=== PATIENT | female | born 1995 | race American Indian/Alaskan Native ===

== ENCOUNTER 2017-03-13 19:27 | Emergency (ER) | payer SELFPAY ==
--- NOTE | 2017-03-13 22:27 | XRay Report ---
FINAL REPORT EXAM: XR CHEST ROUTINE 2V HISTORY: wheezing/cough/ pneumonia TECHNIQUE: 2 views of the chest. PRIORS: None. FINDINGS: The cardiomediastinal silhouette appears normal. The lungs are clear. The bones and soft tissues are unremarkable. IMPRESSION: No evidence of acute cardiopulmonary disease
[2017-03-13] MEDS ORDERED: PHENERGAN/CODEINE 6.25-10 MG/5ML PO ONE (23:01)
--- NOTE | 2017-03-13 23:55 | Emergency Department Report ---
HPI - General Chief Complaint: Upper Respiratory Infection Time Seen by Provider: 03/13/17 21:11 - HPI HPI: 22-year-old female presents today complaining of persistent cough 1.5 weeks. Patient states that recently it has been productive with green sputum. Denies any preceding cold symptoms. Positive for nasal congestion. Positive for history of asthma and states that she is allergic to pollen. Denies any history of smoking. Denies fever, chills, nausea, vomiting, chest pain, shortness of breath, abdominal pain. Denies sick contacts. ED Past Medical Hx - Past Medical History Previous Medical History?: Yes Hx Asthma: Yes - Surgical History Past Surgical History?: No - Social History Smoking Status: Never Smoker - Medications Home Medications: Home Medications Medication Instructions Recorded Confirmed Last Taken Type Omeprazole [PriLOSEC] 20 mg PO QDAY #30 capsule. 07/15/14 Unknown Rx Cetirizine HCl [ZyrTEC] 10 mg PO QDAY #30 capsule 03/14/17 Unknown Rx Fluticasone [Flonase] 1 spray NS QDAY #1 bottle 03/14/17 Unknown Rx Promethazine /Codeine 5 ml PO Q6H PRN #1 bottle 03/14/17 Unknown Rx [Phenergan/Codeine 6.25-10 mg/5 ml] ED Review of Systems ROS: Stated complaint: SOB/COUGH/CHEST PAIN Other details as noted in HPI Constitutional: denies: chills, fever, malaise Eyes: denies: eye pain ENT: congestion. denies: ear pain, throat pain Respiratory: cough. denies: shortness of breath, wheezing Cardiovascular: denies: chest pain, palpitations Endocrine: no symptoms reported Gastrointestinal: denies: abdominal pain, nausea, vomiting Neurological: denies: headache, weakness Physical Exam - Physical Exam Vital Signs: Vital Signs 03/13/17 19:52 Temperature 98.2 F Pulse Rate 114 H Respiratory 20 Rate Blood Pressure 115/76 O2 Sat by Pulse 100 Oximetry Physical Exam: GENERAL: The patient is well-developed and well-nourished. Patient is in NAD. HEAD: Normocephalic. Atraumatic. EYES: PERRL. EARS: External auditory canals and tympanic membranes clear; hearing grossly intact. NOSE: Normal nasal mucosa. Positive for nasal drainage. THROAT: No erythema, swelling or exudates. NECK: Supple, nontender, without lymphadenopathy. No meningitic signs are noted. CHEST/LUNGS: Clear to auscultation throughout. HEART/CARDIOVASCULAR: Tachycardic. Regular rhythm. No murmurs, rubs or gallops. ABDOMEN: Abdomen is soft, nontender. Bowel sounds normoactive. No guarding or rebound tenderness. EXTREMITIES: Peripheral pulses intact. Capillary refill less than 2 seconds. NEURO: Alert and oriented x 3. Normal gait. ED Course Vital Signs 03/13/17 19:52 Temperature 98.2 F Pulse Rate 114 H Respiratory 20 Rate Blood Pressure 115/76 O2 Sat by Pulse 100 Oximetry ED Medical Decision Making - Lab Data Vital Signs 03/13/17 03/14/17 19:52 00:34 Temperature 98.2 F 98.8 F Pulse Rate 114 H 83 Respiratory 20 18 Rate Blood Pressure 115/76 Blood Pressure 108/68 [Left] O2 Sat by Pulse 100 97 Oximetry - Radiology Data Radiology results: report reviewed Chest x-ray: The cardiomediastinal silhouette appears normal. The lungs are clear. The bones and soft tissues are unremarkable. No evidence of acute cardiopulmonary disease. - Medical Decision Making 21-year-old female presents today with persistent cough 1.5 weeks and nasal congestion. Her chest x-ray results revealed no acute pulmonary findings. Patient was given promethazine with codeine and reports complete symptomatic relief. Patient is in no acute distress at this time. She will be discharged home and is encouraged to follow up with a primary care provider. She will be sent home on promethazine/codeine, Zyrtec and Flonase and is encouraged to return to the emergency room for any worsening symptoms. Critical care attestation.: If time is entered above; I have spent that time in minutes in the direct care of this critically ill patient, excluding procedure time. ED Disposition Clinical Impression: URI (upper respiratory infection) Qualifiers: URI type: unspecified URI Qualified Code(s): J06.9 - Acute upper respiratory infection, unspecified Disposition: DISCHARGED TO HOME OR SELFCARE Is pt being admited?: No Does the pt Need Aspirin: No Condition: Stable Instructions: Upper Respiratory Infection (ED) Additional Instructions: Follow-up with primary care provider. Return to the emergency department if symptoms worsen. Prescriptions: Cetirizine HCl [ZyrTEC] 10 mg PO QDAY #30 capsule Fluticasone [Flonase] 1 spray NS QDAY #1 bottle Promethazine /Codeine [Phenergan/Codeine 6.25-10 mg/5 ml] 5 ml PO Q6H PRN #1 bottle PRN Reason: cough Referrals: PRIMARY CARE,MD [Primary Care Provider] - 3-5 Days [facility] [Outside] - 3-5 Days Forms: Work/School Release Form(ED), Accompanied Note Time of Disposition: 00:33
[2017-03-14 00:35] VITALS: BP 108/68
== END 2017-03-14 00:44 | disposition home or self-care (01) ==
LOC: ED 19:27
DX: J06.9 Acute upper respiratory infection, unspecified (principal); J45.909 Unspecified asthma, uncomplicated
CPT/HCPCS: 71020

== ENCOUNTER 2019-04-09 13:32 | Emergency (ER) | payer SELFPAY ==
[2019-04-09 14:38] VITALS: BP 147/63
--- NOTE | 2019-04-09 14:39 | Emergency Department Report ---
Blank Doc - Documentation Documentation: pt presents with substernal chest burning that began 1 week ago it is worse at night worse after eating increased belching PMHx asthma no allergies to meds LNMP 04/04/19 has not taken anything non smoker non drinker no drug use
--- NOTE | 2019-04-09 16:33 | Emergency Department Report ---
- General Chief Complaint: Upper Respiratory Infection Stated Complaint: CHEST PAIN Time Seen by Provider: 04/09/19 14:37 Source: patient Mode of arrival: Ambulatory Limitations: No Limitations - History of Present Illness Initial Comments: Patient is a 24-year-old female who is complaining of a cough for approximately a week. Patient states the cough is productive of clear mucus. Patient is a nonsmoker. Patient states she occasionally will get some pain in her chest that she describes as soreness. Pain is 6 out of 10 in severity is worse with cough. Patient denies any fevers chills nausea vomiting diarrhea or neck stiffness - Related Data Previous Rx's Medication Instructions Recorded Last Taken Type Omeprazole [PriLOSEC] 20 mg PO QDAY #30 capsule. 07/15/14 Unknown Rx Cetirizine HCl [ZyrTEC] 10 mg PO QDAY #30 capsule 03/14/17 Unknown Rx Fluticasone [Flonase] 1 spray NS QDAY #1 bottle 03/14/17 Unknown Rx Promethazine /Codeine 5 ml PO Q6H PRN #1 bottle 03/14/17 Unknown Rx [Phenergan/Codeine 6.25-10 mg/5 ml] ALBUTEROL Inhaler (OR & NICU) 2 puff IH QID PRN #1 inhalation 04/09/19 Unknown Rx [ProAir HFA Inhaler] Benzonatate [Tessalon Perles] 100 mg PO Q8HR #10 capsule 04/09/19 Unknown Rx predniSONE [Deltasone] 20 mg PO QDAY #5 tab 04/09/19 Unknown Rx Allergies Allergy/AdvReac Type Severity Reaction Status Date / Time No Known Allergies Allergy Verified 04/09/19 13:32 ED Review of Systems ROS: Stated complaint: CHEST PAIN Other details as noted in HPI Comment: All other systems reviewed and negative ED Past Medical Hx - Past Medical History Hx Asthma: Yes - Social History Smoking Status: Never Smoker Substance Use Type: None - Medications Home Medications: Home Medications Medication Instructions Recorded Confirmed Last Taken Type Omeprazole [PriLOSEC] 20 mg PO QDAY #30 capsule. 07/15/14 Unknown Rx Cetirizine HCl [ZyrTEC] 10 mg PO QDAY #30 capsule 03/14/17 Unknown Rx Fluticasone [Flonase] 1 spray NS QDAY #1 bottle 03/14/17 Unknown Rx Promethazine /Codeine 5 ml PO Q6H PRN #1 bottle 03/14/17 Unknown Rx [Phenergan/Codeine 6.25-10 mg/5 ml] ALBUTEROL Inhaler (OR & NICU) 2 puff IH QID PRN #1 inhalation 04/09/19 Unknown Rx [ProAir HFA Inhaler] Benzonatate [Tessalon Perles] 100 mg PO Q8HR #10 capsule 04/09/19 Unknown Rx predniSONE [Deltasone] 20 mg PO QDAY #5 tab 04/09/19 Unknown Rx ED Physical Exam - General Limitations: No Limitations General appearance: alert, in no apparent distress - Head Head exam: Present: atraumatic, normocephalic - Eye Eye exam: Present: normal appearance, PERRL, EOMI - ENT ENT exam: Present: mucous membranes moist - Neck Neck exam: Present: normal inspection - Respiratory Respiratory exam: Present: normal lung sounds bilaterally. Absent: respiratory distress, wheezes, rales, rhonchi - Cardiovascular Cardiovascular Exam: Present: regular rate, normal rhythm. Absent: systolic murmur, diastolic murmur, rubs, gallop - GI/Abdominal GI/Abdominal exam: Present: soft, normal bowel sounds. Absent: distended, tenderness, guarding, rebound - Extremities Exam Extremities exam: Present: normal inspection - Back Exam Back exam: Present: normal inspection - Neurological Exam Neurological exam: Present: alert, oriented X3 - Psychiatric Psychiatric exam: Present: normal affect, normal mood - Skin Skin exam: Present: warm, dry, intact, normal color. Absent: rash ED Course Vital Signs 04/09/19 14:36 Temperature 98.4 F Pulse Rate 16 L Respiratory 16 Rate Blood Pressure 147/63 O2 Sat by Pulse 98 Oximetry ED Medical Decision Making - Medical Decision Making Patient's O2 sat is within normal limits and her lung coto are clear. Patient likely with a viral upper respiratory infection. Patient given meds for symptomatic relief. Critical care attestation.: If time is entered above; I have spent that time in minutes in the direct care of this critically ill patient, excluding procedure time. ED Disposition Clinical Impression: Upper respiratory infection Disposition: DC-01 TO HOME OR SELFCARE Is pt being admited?: No Does the pt Need Aspirin: No Condition: Stable Instructions: Upper Respiratory Infection (ED) Referrals: RYAN MONROY MD [Primary Care Provider] - 3-5 Days Time of Disposition: 16:29
== END 2019-04-09 16:30 | disposition home or self-care (01) ==
LOC: ED 13:32
DX: J06.9 Acute upper respiratory infection, unspecified (principal); J45.909 Unspecified asthma, uncomplicated
CPT/HCPCS: 99282

== ENCOUNTER 2019-06-17 12:47 | Emergency (ER) | payer SELFPAY ==
[2019-06-17 13:15] VITALS: BP 117/70
--- NOTE | 2019-06-17 13:15 | Emergency Department Report ---
Chief Complaint: Sore Throat Stated Complaint: SORE THROAT Time Seen by Provider: 06/17/19 13:11 - HPI History of Present Illness: This is a 24 y.o. F. that presents to the ER with sore throat for 2 weeks. Reports history of strep throat around this time every year. Pain worse when swallowing. - Exam Vital Signs: Vital Signs 06/17/19 13:12 Temperature 97.7 F Pulse Rate 86 Respiratory 18 Rate Blood Pressure 117/70 O2 Sat by Pulse 100 Oximetry MSE screening note: Focused history and physical exam performed. Due to findings the following was ordered: Rapid strep ED Disposition for MSE Condition: Stable
--- NOTE | 2019-06-17 15:10 | Emergency Department Report ---
ED ENT HPI - General Chief complaint: Sore Throat Stated complaint: SORE THROAT Time Seen by Provider: 06/17/19 13:11 Source: patient Mode of arrival: Ambulatory Limitations: No Limitations - History of Present Illness Initial comments: This is a 24-year-old female nontoxic, well nourished in appearance, no acute signs of distress presents to the ED with c/o of sore throat x2 weeks. Patient describes sore throat as swallowing razer blades. Patient denies any fever, chills, headache, stiff neck, nausea, vomiting, chest pain, shortness of breath, numbness or tingling. Patient denies any drooling or hoarseness. Patient denies any allergies or significant past medical history. MD complaint: sore throat -: week(s) (2) Location: throat Severity: mild Severity scale (0 -10): 8 Quality: aching Consistency: constant Improves with: none Worsens with: swallowing Associated Symptoms: pain with swallowing, sore throat. denies: fever, cough, gum swelling, toothache, tinnitus, hearing loss, discharge from ear, rhinorrhea - Related Data Previous Rx's Medication Instructions Recorded Last Taken Type Omeprazole [PriLOSEC] 20 mg PO QDAY #30 capsule. 07/15/14 Unknown Rx Cetirizine HCl [ZyrTEC] 10 mg PO QDAY #30 capsule 03/14/17 Unknown Rx Fluticasone [Flonase] 1 spray NS QDAY #1 bottle 03/14/17 Unknown Rx Promethazine /Codeine 5 ml PO Q6H PRN #1 bottle 03/14/17 Unknown Rx [Phenergan/Codeine 6.25-10 mg/5 ml] ALBUTEROL Inhaler (OR & NICU) 2 puff IH QID PRN #1 inhalation 04/09/19 Unknown Rx [ProAir HFA Inhaler] Benzonatate [Tessalon Perles] 100 mg PO Q8HR #10 capsule 04/09/19 Unknown Rx predniSONE [Deltasone] 20 mg PO QDAY #5 tab 04/09/19 Unknown Rx Amoxicillin [Amoxicillin TAB] 875 mg PO BID #20 tablet 06/17/19 Unknown Rx Ibuprofen [Motrin] 600 mg PO Q8H PRN #20 tablet 06/17/19 Unknown Rx Nystas/Diphen/Xyl Visc/Mylanta 15 ml MM Q4H PRN 5 Days ml 06/17/19 Unknown Rx [Magic Mouthwash] Allergies Allergy/AdvReac Type Severity Reaction Status Date / Time No Known Allergies Allergy Verified 04/09/19 13:32 ED Dental HPI - General Chief complaint: Sore Throat Stated complaint: SORE THROAT Time Seen by Provider: 06/17/19 13:11 Source: patient Mode of arrival: Ambulatory Limitations: No Limitations - Related Data Previous Rx's Medication Instructions Recorded Last Taken Type Omeprazole [PriLOSEC] 20 mg PO QDAY #30 capsule. 07/15/14 Unknown Rx Cetirizine HCl [ZyrTEC] 10 mg PO QDAY #30 capsule 03/14/17 Unknown Rx Fluticasone [Flonase] 1 spray NS QDAY #1 bottle 03/14/17 Unknown Rx Promethazine /Codeine 5 ml PO Q6H PRN #1 bottle 03/14/17 Unknown Rx [Phenergan/Codeine 6.25-10 mg/5 ml] ALBUTEROL Inhaler (OR & NICU) 2 puff IH QID PRN #1 inhalation 04/09/19 Unknown Rx [ProAir HFA Inhaler] Benzonatate [Tessalon Perles] 100 mg PO Q8HR #10 capsule 04/09/19 Unknown Rx predniSONE [Deltasone] 20 mg PO QDAY #5 tab 04/09/19 Unknown Rx Amoxicillin [Amoxicillin TAB] 875 mg PO BID #20 tablet 06/17/19 Unknown Rx Ibuprofen [Motrin] 600 mg PO Q8H PRN #20 tablet 06/17/19 Unknown Rx Nystas/Diphen/Xyl Visc/Mylanta 15 ml MM Q4H PRN 5 Days ml 06/17/19 Unknown Rx [Magic Mouthwash] Allergies Allergy/AdvReac Type Severity Reaction Status Date / Time No Known Allergies Allergy Verified 04/09/19 13:32 ED Review of Systems ROS: Stated complaint: SORE THROAT Other details as noted in HPI Constitutional: denies: chills, fever Eyes: denies: eye pain, eye discharge, vision change ENT: throat pain. denies: ear pain Respiratory: denies: cough, shortness of breath, wheezing Cardiovascular: denies: chest pain, palpitations Endocrine: no symptoms reported Gastrointestinal: denies: abdominal pain, nausea, diarrhea Genitourinary: denies: urgency, dysuria, discharge Musculoskeletal: denies: back pain, joint swelling, arthralgia Skin: denies: rash, lesions Neurological: denies: headache, weakness, paresthesias Psychiatric: denies: anxiety, depression Hematological/Lymphatic: denies: easy bleeding, easy bruising ED Past Medical Hx - Past Medical History Previous Medical History?: Yes Hx Asthma: Yes - Surgical History Past Surgical History?: Yes Additional Surgical History: C section - Social History Smoking Status: Never Smoker Substance Use Type: None - Medications Home Medications: Home Medications Medication Instructions Recorded Confirmed Last Taken Type Omeprazole [PriLOSEC] 20 mg PO QDAY #30 capsule.dr 07/15/14 Unknown Rx Cetirizine HCl [ZyrTEC] 10 mg PO QDAY #30 capsule 03/14/17 Unknown Rx Fluticasone [Flonase] 1 spray NS QDAY #1 bottle 03/14/17 Unknown Rx Promethazine /Codeine 5 ml PO Q6H PRN #1 bottle 03/14/17 Unknown Rx [Phenergan/Codeine 6.25-10 mg/5 ml] ALBUTEROL Inhaler (OR & NICU) 2 puff IH QID PRN #1 inhalation 04/09/19 Unknown Rx [ProAir HFA Inhaler] Benzonatate [Tessalon Perles] 100 mg PO Q8HR #10 capsule 04/09/19 Unknown Rx predniSONE [Deltasone] 20 mg PO QDAY #5 tab 04/09/19 Unknown Rx Amoxicillin [Amoxicillin TAB] 875 mg PO BID #20 tablet 06/17/19 Unknown Rx Ibuprofen [Motrin] 600 mg PO Q8H PRN #20 tablet 06/17/19 Unknown Rx Nystas/Diphen/Xyl Visc/Mylanta 15 ml MM Q4H PRN 5 Days ml 06/17/19 Unknown Rx [Magic Mouthwash] ED Physical Exam - General Limitations: No Limitations General appearance: alert, in no apparent distress - Head Head exam: Present: atraumatic, normocephalic - Expanded ENT Exam Expanded Ear exam: Present: normal external inspection Mouth exam: Present: normal external inspection. Absent: drooling, trismus, muffled voice Teeth exam: Present: normal inspection Throat exam: Positive: tonsillar erythema, other (uvula midline). Negative: tonsillomegaly, tonsillar exudate, R peritonsillar mass, L peritonsillar mass - Neck Neck exam: Present: normal inspection, full ROM. Absent: tenderness, meningismus, lymphadenopathy - Extremities Exam Extremities exam: Present: normal inspection, full ROM - Back Exam Back exam: Present: normal inspection, full ROM. Absent: tenderness, CVA tenderness (R), CVA tenderness (L), muscle spasm, paraspinal tenderness, vertebral tenderness, rash noted - Neurological Exam Neurological exam: Present: alert, oriented X3, normal gait - Psychiatric Psychiatric exam: Present: normal affect, normal mood - Skin Skin exam: Present: warm, dry, intact, normal color. Absent: rash ED Course Vital Signs 06/17/19 13:12 Temperature 97.7 F Pulse Rate 86 Respiratory 18 Rate Blood Pressure 117/70 O2 Sat by Pulse 100 Oximetry - Reevaluation(s) Reevaluation #1: 06/17/19 15:10 Patient is speaking in full sentences with no signs of distress noted. ED Medical Decision Making - Medical Decision Making This is a 24-year-old female that presents with tonsillitis. Patient is stable was examined by me. There is no drooling. No tonsillar abscess noted. Uvula is midline. Vital signs are stable. Patient is not febrile and normal heart rate. Patient was instructed to Follow-up with a primary care doctor in 3-5 days or if symptoms worsen and continue return to emergency room as soon as possible. At time of discharge, the patient does not seem toxic or ill in appearance. No acute signs of distress noted. Patient agrees to discharge treatment plan of care. No further questions noted by the patient. Critical care attestation.: If time is entered above; I have spent that time in minutes in the direct care of this critically ill patient, excluding procedure time. ED Disposition Clinical Impression: Pharyngitis Qualifiers: Pharyngitis/tonsillitis etiology: unspecified etiology Qualified Code(s): J02.9 - Acute pharyngitis, unspecified Disposition: - TO HOME OR SELFCARE Is pt being admited?: No Does the pt Need Aspirin: No Condition: Stable Instructions: Pharyngitis (ED) Additional Instructions: Follow-up with a primary care doctor in 3-5 days or if symptoms worsen and continue return to emergency room as soon as possible. Prescriptions: Amoxicillin [Amoxicillin TAB] 875 mg PO BID #20 tablet Nystas/Diphen/Xyl Visc/Mylanta [Magic Mouthwash] 15 ml MM Q4H PRN 5 Days ml PRN Reason: Sore Throat Ibuprofen [Motrin] 600 mg PO Q8H PRN #20 tablet PRN Reason: Pain Referrals: PRIMARY CARE, [Primary Care Provider] - 3-5 Days MICHAEL HURT MD [Staff Physician] - 3-5 Days [facility] [Outside] - 3-5 Days [facility] [Outside] - 3-5 Days Forms: Work/School Release Form(ED)
== END 2019-06-17 15:35 | disposition home or self-care (01) ==
LOC: ED 12:47
DX: J02.9 Acute pharyngitis, unspecified (principal); J45.909 Unspecified asthma, uncomplicated; Z98.890 Other specified postprocedural states; Z79.899 Other long term (current) drug therapy
CPT/HCPCS: 87116; 87430; 99283